=== PATIENT | male | born 1935 | race African-American/Black ===

== ENCOUNTER 2018-02-08 14:03 | Emergency (ER) | payer OTHER ==
[~2018-02-08] VITALS: Ht 167.6 cm; Wt 110.0 kg
[~2018-02-08 14:03] MED LIST: AMLO10TA80 PO; ATOR-2 PO; CLOP75TA33 PO; FURO20TA4 PO; METO25TA6 PO; NITR0.4T49 SL; TAMS0.4C31 PO
[2018-02-08] MEDS ORDERED: FUROSEMIDE 40MG/4ML VIAL IV STA (14:20)
[2018-02-08] MEDS ORDERED: METHYLPREDNISOLONE SOD SUCC 125 MG/2 ML VIAL IV STA (14:20)
[2018-02-08] MEDS ORDERED: IPRATROPIUM BROMIDE (0.02%) 0.5MG/2.5ML NEB HHN STA (14:20)
[2018-02-08] MEDS ORDERED: NITROGLYCERIN OINT 1GM/INCH UDPKT TD STA (14:20)
[2018-02-08] MEDS ORDERED: ALBUTEROL (0.083%) 2.5MG/3ML NEB HHN STA (14:20)
[2018-02-08] MEDS ORDERED: ALBUTEROL (0.5%) 2.5MG/0.5ML NEB HHN ONE (14:44)
[2018-02-08] MEDS ORDERED: ASPIRIN 81MG TABLET PO ONE (15:45)
[2018-02-08 15:59] LABS: BASOPHILS % 0.8 % (0.0-2.0); EOSINOPHILS % 2.1 % (0.0-5.0); HEMATOCRIT. 33.1 % (42.0-52.0); HEMOGLOBIN. 10.7 g/dL (14.0-18.0); MEAN CORPUSCULAR HEMOGLOBIN 28.2 pg (28.0-32.0); MEAN CORPUSCULAR VOLUME 87.6 fL (80.0-94.0); MEAN PLATELET VOLUME 8.6 fl (7.4-10.4); MONOCYTES % 10.5 % (2.0-8.0); NEUTROPHILS % 56.6 % (40.0-76.0); PLATELET 185 x1000/uL (130-400); RED BLOOD CELL COUNT 3.78 mill/uL (4.7-6.1); RED CELL DISTRIBUTION WIDTH 14.2 % (11.6-14.6)
[2018-02-08 16:07] LABS: INR 1.1; PARTIAL THROMBOPLASTIN TIME 24.5 sec (23.4-31.0); PROTHROMBIN TIME 11.7 sec (9.4-11.6)
[2018-02-08 16:11] LABS: CHLORIDE 103 mEq/L (98-107)
[2018-02-08 16:16] LABS: CREATINE KINASE MB FRACTION 1.9 ng/mL (0.5-3.6)
[2018-02-08 18:40] VITALS: BP 136/84
== END 2018-02-08 19:13 | disposition short-term general hospital (02) ==
LOC: ER 14:03 → EDBEDREQ 15:42 → ER 19:13 → CANBEDREQ 20:11
DX: I67.82 Cerebral ischemia (principal); I50.9 Heart failure, unspecified; I10 Essential (primary) hypertension; J44.9 Chronic obstructive pulmonary disease, unspecified; Z86.73 Personal history of transient ischemic attack (TIA), and cerebral infarction without residual deficits
CPT/HCPCS: 36415; 70450; 71045; 80053; 82553; 82962; 83880; 84484; 85025; 85610; 85730; 93005; 94640; 96374; 96375; 99285; J1940; J2930; J7611